=== PATIENT | male | born 1950 | race Caucasian/White ===

== ENCOUNTER 2016-08-12 10:05 | Inpatient (IN) | payer OTHER ==
--- NOTE | ~2016-08-12 | O ---
[address] [address] OPERATIVE REPORT Name: COLBYBRADLEYQUINTON Lesly Room #: 308-P ADM IN M.R.#: [id number] Admission: 08/12/16 Attend Phys: Quinton Lancaster MD Discharge: Date of : 52 Report #: [id number] THIS REPORT FOR: //name// CC: Quinton Littlejohnickson DATE OF SERVICE: 08/13/2016 SERVICE: Orthopedics. FACILITY: [facility]. SURGEON: Qiunton Lancaster M.D. SENIOR MEDICAL DIRECTOR: None. PREOPERATIVE DIAGNOSES: 1. Left ankle fracture dislocation. 2. Left lateral malleolus ankle fracture. POSTOPERATIVE DIAGNOSES: 1. Left ankle fracture dislocation. 2. Left lateral malleolus ankle fracture. PROCEDURE: Open reduction and internal fixation, left lateral malleolus ankle fracture. COMPLICATIONS: None. DRAINS: None. SPECIMENS: None. ESTIMATED BLOOD LOSS: 20 mL. ANESTHESIA TYPE: Single shot regional nerve block; gen w/ LMA supplementation. FINDINGS: 1. Synthes 8-hole 1/3 tubular with 2 lag screws measuring 2.0 mm in diameter. 2. Negative cotton test and stable mortise after fixation of the lateral malleolus. HISTORY AND INDICATIONS: The patient is a 66-year-old gentleman who stepped in a hole at work and sustained a left ankle fracture dislocation. He presented to clinic with subluxated talus. He underwent closed reduction in the clinic and [address] [address] OPERATIVE REPORT Name: QUINTON CROWE Room #: 308-P [facility] IN [facility]#: [id number] Admission: 08/12/16 Attend Phys: Quinton Lancaster MD Discharge: Date of : 52 Report #: [id number] then splinting and iced and elevated through the weekend, so that the swelling would be manageable. Surgical indications were reviewed with him. The risks, benefits, alternatives and indications for surgery were discussed as well. Risks include but not limited to pain, bleeding, infection, injury to nerves or blood vessels, persistent pain despite surgical intervention, malunion, nonunion, need for further surgery including hardware removal as well as stiffness and complications related to anesthesia such as stroke, heart attack, pulmonary complications, thromboembolic disease and . Despite these risks, he wished to proceed. PROCEDURE IN DETAIL: After left lower extremity was correctly identified in the preoperative holding area as the operative extremity, the patient underwent placement of a popliteal nerve block by the anesthesia team. He was then taken to the operating room, placed supine on operating table and general anesthesia with LMA was induced without complication. Prophylactic antibiotics were administered at appropriate time. No tourniquet was utilized because he has a stent in the ipsilateral leg. Left lower extremity was prepped and draped in standard sterile fashion. Time-out procedure was performed. A standard lateral approach was made to the fibula, measuring approximately 9 cm in length. Dissection was taken down creating full thickness skin flaps. The superficial branch of peroneal nerve was retracted anteriorly. The fracture was visualized. The hematoma was cleaned and reduction maneuver was performed and then it was provisionally clamped. There was a primarily Montanez B oblique fracture with anterior distal comminuted segment with some soft tissue attachments still maintaining its position and so the soft tissue was left to allow for optimal stability fixation and vascularity. With the fracture provisionally fixed, two 2.0 mm lag screws were then placed in a ant-proximalto distal- posterior fashion through both of the proximal segments including the comminuted fragment and stable provisional fixation was achieved with this allowing for the clamps to be removed from the ankle. The 8-hole 1/3 tubular plate was then selected and it was provisionally fixed to the shaft proximally with it centered in appropriate position. The fibular shape required this to be placed in the more anterior location, so that bicortical purchase with flush plate position could be achieved. The plate sat flushly against the lateral aspect of the fibula distally and then with fluoroscopy to ensure that the provisional fixation was appropriate. The reduction was anatomic and the plate position was appropriate. Distal screw was then placed with 4.0 cancellous, total of 3 screws were achieved distally and 3 cortical screws achieved proximally. Cotton test was then performed and there was no syndesmosis instability. The medial side had reduced with reduction and fixation of the lateral malleolus, so there was no need for medial exposure. At this point, the wound was then thoroughly [address] [address] OPERATIVE REPORT Name: QUINTON CROWE Room #: 308-P [facility] IN ..#: [id number] Admission: 08/12/16 Attend Phys: Quinton Lancaster MD Discharge: Date of : 52 Report #: [id number] irrigated. Hemostasis had been achieved early in the procedure and bleeding was minimal despite not utilizing a tourniquet. The wound was then closed with 2-0 Vicryl sutures followed by skin vladimir. Sterile dressing was applied followed by a very well-padded short leg splint with posterior and lateral straps. The patient was then awakened from anesthesia and taken to recovery room in stable condition. There were no complications, and all counts were recorded as correct. <ELECTRONICALLY SIGNED> By: Quinton Lancaster MD 08/14/16 0623 1125 1400 Quinton Lancaster MD /nt
--- NOTE | ~2016-08-12 | EKG ---
[address] [address] ELECTROCARDIOGRAM REPORT Name: QUINTON CROWE Room #: 308-[facility] IN ..#: [id number] Admission: 08/12/16 Attend Phys: Quinton Lancaster MD Discharge: 08/14/16 Date of : 52 Report #: [id number] THIS REPORT FOR: //name// [facility] Test Date: 2016-08-12 Test Time: 12:18:17 Pat Name: QUINTON BOWMANJOLLYMilagros Department: Room: 308 Gender: M Pin Inserter Regulator: deb : 1950 Requested By: Quinton Lancaster Order Number: [id number] MD: Tao Crockett Measurements Intervals [place] Rate: 66 P: 63 IN: 158 QRS: 4 QRSD: 96 T: 102 QT: 471 QTc: 494 Interpretive Statements Sinus rhythm Inferior infarct, old Minimal ST elevation, anterior leads Lateral leads are also involved No previous ECG available for comparison Electronically Signed On 08-18-2016 7:41:25 CDT by Tao Crockett [email or web address] <ELECTRONICALLY SIGNED> By: Tao Crockett MD 08/18/16 0741 1218 1218 Tao Crockett MD /CIRA
[~2016-08-12 10:05] MED LIST: AMLODIPINE BESY10 MG PO; ASPIR 8181 MG PO; ATORVASTATIN CA80 MG PO; BYSTOLIC10 MG PO; HYDROCODONE-AP1 EAC6 PO; NORCO 5-325 TA1 EACH PO; PLAVIX 75 MG TA75 M1 PO; VALSARTAN-HCTZ1 EAC4 PO; ZETIA10 MG PO
[2016-08-12 15:42] VITALS: BP 107/75
[2016-08-12 20:00] VITALS: BP 129/67
[2016-08-13 04:00] VITALS: BP 140/52
[2016-08-13 08:05] VITALS: BP 140/82
[2016-08-13 15:53] VITALS: BP 139/75
[2016-08-13 19:18] VITALS: BP 127/81
[2016-08-14 04:22] VITALS: BP 130/69
[2016-08-14 08:45] VITALS: BP 165/76
[2016-08-14 15:41] VITALS: BP 146/77; BP 165/76
== END 2016-08-14 16:50 | disposition home or self-care (01) | DRG 493 ==
LOC: 3N 10:05
PROC: 0QSK04Z Reposition Left Fibula with Internal Fixation Device, Open Approach (ICD-10-PCS; principal; 2016-08-13)
DX: S82.62XA Displaced fracture of lateral malleolus of left fibula, initial encounter for closed fracture (principal); S22.32XA Fracture of one rib, left side, initial encounter for closed fracture; I25.10 Atherosclerotic heart disease of native coronary artery without angina pectoris; E78.00 Pure hypercholesterolemia, unspecified; I11.9 Hypertensive heart disease without heart failure; I73.9 Peripheral vascular disease, unspecified; I25.5 Ischemic cardiomyopathy; W19.XXXA Unspecified fall, initial encounter; Z87.891 Personal history of nicotine dependence; Z72.89 Other problems related to lifestyle; Z87.81 Personal history of (healed) traumatic fracture; I25.2 Old myocardial infarction; Z95.5 Presence of coronary angioplasty implant and graft; Y93.89 Activity, other specified; Y92.89 Other specified places as the place of occurrence of the external cause; Z91.81 History of falling
CPT/HCPCS: 10096; 50010; 50101; 50386; 51131; 51272; 51412; 56528; 56667; 57092; 62110; 62900; 70005

== ENCOUNTER → 2017-07-29 | Outpatient (CLI) | payer BC, OTHER | LOC: ULTRA 05:56 → EDSTATUS 05:56 → ULTRA 16:57 | DX: N28.1 Cyst of kidney, acquired (principal); N28.89 Other specified disorders of kidney and ureter; K76.0 Fatty (change of) liver, not elsewhere classified ==

== ENCOUNTER → 2019-09-30 | Outpatient (CLI) | payer OTHER | LOC: SJCVC 10:15 | PROVIDERS: ATTEND Internal Medicine Cardiovascular Disease | DX: R94.31 Abnormal electrocardiogram [ECG] [EKG] (principal); I25.10 Atherosclerotic heart disease of native coronary artery without angina pectoris; E78.00 Pure hypercholesterolemia, unspecified; I10 Essential (primary) hypertension; I65.23 Occlusion and stenosis of bilateral carotid arteries; I42.9 Cardiomyopathy, unspecified; I73.9 Peripheral vascular disease, unspecified; Z86.73 Personal history of transient ischemic attack (TIA), and cerebral infarction without residual deficits ==

== ENCOUNTER → 2020-01-04 | Outpatient (CLI) | payer OTHER | LOC: SJCVCIMAG 07:54 | PROVIDERS: ATTEND Internal Medicine Cardiovascular Disease | DX: I08.8 Other rheumatic multiple valve diseases (principal); I27.20 Pulmonary hypertension, unspecified; I11.9 Hypertensive heart disease without heart failure; I42.9 Cardiomyopathy, unspecified; I25.10 Atherosclerotic heart disease of native coronary artery without angina pectoris; I73.9 Peripheral vascular disease, unspecified; Z95.820 Peripheral vascular angioplasty status with implants and grafts; Z79.899 Other long term (current) drug therapy; Z87.891 Personal history of nicotine dependence ==

== ENCOUNTER → 2020-05-28 | Outpatient (CLI) | payer OTHER | LOC: SJCVC 13:16 → SJCVCIMAG 13:16 | PROVIDERS: ATTEND Internal Medicine Cardiovascular Disease | DX: I25.10 Atherosclerotic heart disease of native coronary artery without angina pectoris (principal); I10 Essential (primary) hypertension; E78.00 Pure hypercholesterolemia, unspecified; I73.9 Peripheral vascular disease, unspecified; R10.10 Upper abdominal pain, unspecified; J44.9 Chronic obstructive pulmonary disease, unspecified; I25.2 Old myocardial infarction; E78.5 Hyperlipidemia, unspecified; F41.9 Anxiety disorder, unspecified; Z86.73 Personal history of transient ischemic attack (TIA), and cerebral infarction without residual deficits; Z86.74 Personal history of sudden cardiac arrest; Z87.891 Personal history of nicotine dependence; Z72.89 Other problems related to lifestyle; Z79.899 Other long term (current) drug therapy ==

== ENCOUNTER → 2020-08-22 | Outpatient (CLI) | payer OTHER | LOC: SJCVC 13:00 | PROVIDERS: ATTEND Internal Medicine Cardiovascular Disease | DX: I25.10 Atherosclerotic heart disease of native coronary artery without angina pectoris (principal); I10 Essential (primary) hypertension; I65.23 Occlusion and stenosis of bilateral carotid arteries; E78.00 Pure hypercholesterolemia, unspecified; I73.9 Peripheral vascular disease, unspecified; K21.9 Gastro-esophageal reflux disease without esophagitis; I25.2 Old myocardial infarction; F41.9 Anxiety disorder, unspecified; Z86.73 Personal history of transient ischemic attack (TIA), and cerebral infarction without residual deficits; Z79.899 Other long term (current) drug therapy; Z79.82 Long term (current) use of aspirin; Z72.89 Other problems related to lifestyle; Z87.891 Personal history of nicotine dependence ==

== ENCOUNTER → 2020-10-26 | Outpatient (CLI) | payer OTHER | LOC: SJCVCIMAG 09:14 → SJCVC 09:14 | PROVIDERS: ATTEND Internal Medicine Cardiovascular Disease | DX: I70.201 Unspecified atherosclerosis of native arteries of extremities, right leg (principal); I25.10 Atherosclerotic heart disease of native coronary artery without angina pectoris; R07.9 Chest pain, unspecified; R06.02 Shortness of breath; I10 Essential (primary) hypertension; E78.00 Pure hypercholesterolemia, unspecified; I42.9 Cardiomyopathy, unspecified; I65.23 Occlusion and stenosis of bilateral carotid arteries; J44.9 Chronic obstructive pulmonary disease, unspecified; K21.9 Gastro-esophageal reflux disease without esophagitis; I25.2 Old myocardial infarction; Z95.820 Peripheral vascular angioplasty status with implants and grafts; Z79.82 Long term (current) use of aspirin; Z79.899 Other long term (current) drug therapy; Z87.891 Personal history of nicotine dependence; Z82.49 Family history of ischemic heart disease and other diseases of the circulatory system ==

== ENCOUNTER → 2020-10-31 | Outpatient (CLI) | payer OTHER ==
[~2020-10-31] VITALS: Ht 177.8 cm; Wt 105.7 kg
[~2020-10-31] MED LIST changes: +EDARBYCLOR 40-1 EAC1 PO; +XANAX 0.25 MG0.25 MG PO
[2020-10-31 07:25] VITALS: BP 157/90
[2020-10-31 08:10] LABS: HEMOGLOBIN 14.7 gm/dL (14.0-18.0); MCH 30.7 pg (26.0-34.0); MCHC 34.1 g/dL (28.0-37.0); RBC 4.78 mil/uL (4.50-6.00); RDW 13.8 % (10.5-14.5); WBC 8.8 thou/uL (4.0-11.0)
[2020-10-31 08:17] LABS: CREATININE 1.1 mg/dL (0.7-1.3); POTASSIUM 3.4 mmol/L (3.5-5.1)
--- NOTE | 2020-10-31 08:18 | EKG ---
[address] [address] ELECTROCARDIOGRAM REPORT Name: KATALINA CROWE [id number] Admission: 10/31/20 Attend Phys: Darshan Tellez MD, Discharge: Date of : 52 Report #: [id number] [facility] Test Date: 2020-10-31 Test Time: 07:20:38 Pat Name: KATALINA CROWE Department: Room: Gender: M Service Dispatcher: SBUL : 1950 Requested By: Darshan Tellez Order Number: [id number] MD: Sher Potts Measurements Intervals [place] Rate: 65 P: 62 UT: 165 QRS: 9 QRSD: 110 T: 58 QT: 466 QTc: 485 Interpretive Statements Sinus rhythm Atrial premature complex Inferior infarct, old Minimal ST elevation, anterolateral leads Compared to ECG 08/12/2016 12:18:17 Atrial premature complex(es) now present Myocardial infarct finding still present ST (T wave) deviation still present Electronically Signed On 10-31-2020 8:18:09 CDT by Sher Potts [email or web address] <ELECTRONICALLY SIGNED> By: Sehr Potts MD, FAC 10/31/2018 9 9 Sher Potts MD, [facility] /EPI
[2020-10-31 08:24] LABS: CALCIUM 9.1 mg/dL (8.5-10.1)
--- NOTE | 2020-10-31 17:29 | CATHLAB ---
[facility] [place] [address] INVASIVE PROCEDURE REPORT Name: KATALINA CROWE Room #: REG IVANIA Kay#: [id number] Admission: 10/31/20 Attend Phys: Darshan Tellez MD, Discharge: Date of : 52 Report #: [id number] THIS REPORT FOR: cc: Chalo Silva MD, Neal A. MD Mancuso, Gerald M. MD [facility] ~ APPROVED REPORT Study performed: 10/31/2020 08:19:18 Patient Details Patient Status: Out-Patient Room #: The patient is a 70 year-old male Event Personnel Darshan Tellez Box Cutter, Alaina Velasquez RTR, CLAUDE Scrub, Cathy Mitchell RTR Monitor, Kelby Lobo RN student finance advisor Performed Art Access - R femoral artery* Left Heart Cath w/or w/o Coronaries [id number] [facility] [address] Initial Mod Sed Same Phys/QHP Gr5y 141527 Hemostasis w/ Mynx Aortogram Abdominal Peripheral Angio [id number] Procedure Narrative The Right Groin^ was infiltrated with 1% Lidocaine subcutaneous anesthesia. A PINNACLE 6FR Sheath #[id number] sheath was inserted into the RFA^. Coronary angiography was performed using coronary diagnostic catheters. The right coronary system was accessed and visualized with a JR4 catheter. The left coronary system was accessed and visualized with a JL4 catheter. The left ventricle was accessed and visualized with a PIGTAIL catheter. Left ventriculogram was performed in 30 degree projection. An aortogram of the abdominal aorta was performed. Closure device was deployed with a Fr MYNXGRIP 6/7F #[id number]. The patient tolerated the procedure well and there were no complications associated with the procedure. There was no hematoma. Intraoperative Conscious Sedation Sedation start time: 9:56 Case end Time: 9:26 Fentanyl 50 mcg Versed 1 mg [email or web address] [address] INVASIVE PROCEDURE REPORT Name: KATALINA CROWE Room #: [facility]#: [id number] Admission: 10/31/20 Attend Phys: Darshan Tellez, Discharge: Date of : 52 Report #: [id number] Fluoro Time: 1.30 minutes Dose: DAP 6230.60 cGycm2 816 mGy Contrast Type and Amount: Omnipaque 100 ml Hemodynamics The aortic pressure is 164/75 mmHg with a mean of 107 mmHg. The left ventricular pressure is 168/-3 mmHg with a mean of mmHg. The left ventricular end diastolic pressure is 13 mmHg. Conclusion #1 Normal left ventricular size ejection fraction lower limits of normal EF 50% range. #2 abdominal aortogram revealing mild distal aortic ectasia no definite aneurysm we will follow that up with abdominal ultrasound. #3 left main moderate size free of disease giving rise to LAD and circumflex. #4 LAD extends around the apex with mild irregularities #5 circumflex OM large dominant vessel previously placed proximal stent widely patent. In the distal third there is an eccentric 60% lesion just proximal to the bifurcation of a left-sided PDA SABI this is not significantly changed since the exam of 2013. Does not appear flow-limiting. 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 Recommendations and plan: Continue aggressive risk factor modification no indication for coronary intervention. Will follow up the small infrarenal aortic aneurysm with ultrasound 6 months. <ELECTRONICALLY SIGNED> By: Darshan Tellez MD, FACC 10/31/201727 27 27 Darshan Tellez MD, FACC /INF
== END | disposition home or self-care (01) ==
LOC: CATH 06:30
PROVIDERS: ATTEND Internal Medicine Cardiovascular Disease
DX: I25.10 Atherosclerotic heart disease of native coronary artery without angina pectoris (principal); I10 Essential (primary) hypertension; E78.5 Hyperlipidemia, unspecified; I25.2 Old myocardial infarction; I73.9 Peripheral vascular disease, unspecified; K21.9 Gastro-esophageal reflux disease without esophagitis; I25.5 Ischemic cardiomyopathy; Z98.890 Other specified postprocedural states; Z79.899 Other long term (current) drug therapy; Z79.82 Long term (current) use of aspirin; I77.811 Abdominal aortic ectasia

== ENCOUNTER → 2021-02-06 | Outpatient (CLI) | payer OTHER | LOC: SJCVCIMAG 08:07 | PROVIDERS: ATTEND Internal Medicine Cardiovascular Disease | DX: R94.31 Abnormal electrocardiogram [ECG] [EKG] (principal); I25.10 Atherosclerotic heart disease of native coronary artery without angina pectoris; I73.9 Peripheral vascular disease, unspecified; I10 Essential (primary) hypertension; E78.00 Pure hypercholesterolemia, unspecified; F41.9 Anxiety disorder, unspecified; K21.9 Gastro-esophageal reflux disease without esophagitis; J44.9 Chronic obstructive pulmonary disease, unspecified; I77.9 Disorder of arteries and arterioles, unspecified; Z87.891 Personal history of nicotine dependence; Z72.89 Other problems related to lifestyle; Z79.899 Other long term (current) drug therapy; Z82.49 Family history of ischemic heart disease and other diseases of the circulatory system ==

== ENCOUNTER 2021-03-21 06:44 | Emergency (ER) | payer OTHER ==
[~2021-03-21] VITALS: Ht 177.8 cm; Wt 104.3 kg
[2021-03-21 07:18] LABS: ABSOLUTE NEUTROPHILS 5.3 thou/uL (1.4-8.2); BASOPHILS 1.1 % (0.0-2.0); EOSINOPHILS 2.2 % (0.0-3.0); HEMATOCRIT 44.2 % (42.0-52.0); HEMOGLOBIN 14.8 gm/dL (14.0-18.0); LYMPHOCYTES 21.3 % (24.0-44.0); MCH 30.5 pg (26.0-34.0); MCHC 33.5 g/dL (28.0-37.0); MONOCYTES 10.7 % (1.0-8.0); POLYS 64.7 % (36.0-66.0); RBC 4.86 mil/uL (4.50-6.00); RDW 13.5 % (10.5-14.5); WBC 8.2 thou/uL (4.0-11.0)
[2021-03-21 07:30] LABS: CALCIUM 8.8 mg/dL (8.5-10.1); CREATININE 0.9 mg/dL (0.7-1.3)
[2021-03-21 07:32] LABS: POTASSIUM 3.9 mmol/L (3.5-5.1)
[2021-03-21 07:37] LABS: ALBUMIN 3.5 g/dL (3.4-5.0); TOTAL BILIRUBIN 1.1 mg/dL (0.2-1.0); TOTAL PROTEIN 7.3 g/dL (6.4-8.2)
[2021-03-21 10:08] LABS: URINE BILIRUBIN NEGATIVE (Negative); URINE BLOOD NEGATIVE (Negative); URINE CLARITY CLEAR; URINE COLOR YELLOW; URINE GLUCOSE-RANDOM* NEGATIVE (Negative); URINE KETONES NEGATIVE (Negative); URINE LEUKOCYTES-REFLEX NEGATIVE (Negative); URINE NITRITE-REFLEX NEGATIVE (Negative); URINE PROTEIN (DIPSTICK) NEGATIVE (Negative); URINE UROBILINOGEN 0.2 E.U./dl (0.2-1.0)
[2021-03-21 10:25] VITALS: BP 141/67
[2021-03-21 10:51] LABS: PLATELET COUNT 213 thou/uL (150-400)
== END 2021-03-21 11:00 | disposition home or self-care (01) ==
LOC: ER 06:44
PROVIDERS: Emergency Medicine
DX: R10.31 Right lower quadrant pain (principal); Z71.1 Person with feared health complaint in whom no diagnosis is made; Z87.891 Personal history of nicotine dependence; Z79.82 Long term (current) use of aspirin; Z79.899 Other long term (current) drug therapy